=== PATIENT | male | born 1980 | race Hispanic/Latino ===

== ENCOUNTER 2017-09-27 18:02 | Observation (INO) | payer OTHER ==
[~2017-09-27] VITALS: Ht 177.8 cm; Wt 142.1 kg
--- NOTE | 2017-09-28 08:26 | CONS ---
[facility] [address], [place] [address] Signed DATE OF CONSULTATION: 09/28/2017 CHIEF COMPLAINT: Periumbilical pain. 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 He is aware that he has an umbilical hernia. Six days ago though he felt that it was increased in size and painful. He could not push it back inside as usual. It continued throughout the week and now it has turned red. He finally came to the emergency room for evaluation. In the emergency room, his white count is normal. CT scan showed his umbilical hernia containing fat and a 2 cm gallstone. I was asked to admit him as a general surgeon overnight. He has received IV fluids and pain medication. Overall, he says he is feeling better. PAST MEDICAL HISTORY: Umbilical hernia, 2 cm gallstone, and back pain. PAST SURGICAL HISTORY: Tonsils. SOCIAL HISTORY: He does not smoke or drink. He is single and has two boys. He works in construction. He prefers the [facility] in [place]. His mother is Becky at [phone]. He has no primary care provider. FAMILY HISTORY: He said mom and dad are healthy. REVIEW OF SYSTEMS: He had 10 systems reviewed and other than being overweight, he had no new issues. ALLERGIES: None. MEDICATIONS: None. PHYSICAL EXAMINATION: VITAL SIGNS: His blood pressure is 100/65, his heart rate is 64, respiratory rate 16, temperature 97.7. He is 96% on room air. He is 5 feet 10 inches and 142 kg. GENERAL: Mariluz is a 37-year-old gentleman who is lying supine in his hospital bed. He Electronically Signed By: VICTOR HUGO QUESADA MD 09/28/17 0826 PATIENT NAME: MARILUZ CAMARENA CONSULTATION DATE OF : 80 REPORT #: [id number] PHYSICIAN: VICTOR HUGO QUESADA MD PCP: NO PRIMARY CARE PHYSICIAN REPORT IS CONFIDENTIAL AND NOT TO BE RELEASED WITHOUT AUTHORIZATION [facility] [address], [place] [address] Signed was sleeping and easily awakened. He does not appear systemically ill or toxic. LUNGS: Clear to auscultation bilaterally. HEART: Regular rate and rhythm. ABDOMEN: Obese, but soft with an incarcerated umbilical hernia, probably every bit a 4 cm in diameter. With his dark skin in the dark room, it is hard to see the amount of redness. LABORATORY DATA: His white blood count is 6.2, neutrophils 56. Liver function tests negative. Albumin is 4.1. Electrolytes unremarkable. RADIOGRAPHIC STUDIES: A CT scan of abdomen and pelvis is reviewed and he has a 2 cm gallstone, but more importantly he has an umbilical hernia with about 2 cm in diameter with about 5 cm of fat coming through the fascial defect. There is some edema in the fluid around it. ASSESSMENT/PLAN: Mariluz is a 37-year-old obese gentleman, who has an incarcerated, not strangulated umbilical hernia. He has been admitted and given IV fluids and we will check to make sure he was given antibiotics. He will be going to the OR later today. I have reviewed with Mariluz the nature of an umbilical hernia. We have discussed primary suture repair versus mesh repair. We have reviewed the expected intraop and postop course. There is risk of surgery including, but not limited to bleeding, infection, scarring, change in contour of the skin, damage to bowel, infection of mesh requiring removal, recurrent hernias and chronic pain. He has expressed understanding and would like to proceed. Victor Hugo Quesada MD ALB/MODL /[id number] cc: Victor Hugo Quesada MD Copies: VICTOR HUGO QUESADA MD ~ Electronically Signed By: VICTOR HUGO QUESADA MD 09/28/17 0826 PATIENT NAME: MARILUZ CAMARENA ETIENNE CONSULTATION DATE OF : 80 REPORT #: [id number] PHYSICIAN: VICTOR HUGO QUESADA MD PCP: NO PRIMARY CARE PHYSICIAN REPORT IS CONFIDENTIAL AND NOT TO BE RELEASED WITHOUT AUTHORIZATION
[2017-09-29] MEDS ORDERED: NORCO 5-325 TA1 EACH PO ×2 (01:30→01:35)
[2017-09-29] MEDS ORDERED: CLEOCIN HCL300 MG PO (01:32)
--- NOTE | 2017-09-29 08:28 | OR ---
[facility] [address], [place] [address] Signed DATE OF OPERATION: 09/28/2017 SURGEON: Vahid Quesada MD PREOPERATIVE DIAGNOSIS: Incarcerated umbilical hernia (2 cm). POSTOPERATIVE DIAGNOSIS: Incarcerated umbilical hernia (2 cm). PROCEDURE: Primary umbilical herniorrhaphy without mesh. ESTIMATED BLOOD LOSS: None. INDICATIONS: Jessee is a 37-year-old obese gentleman, who is known to have an umbilical hernia. For 6 days, he felt that it has increased in size, and it was painful and developed erythema. He finally came to emergency room for evaluation. His white count was normal, and he had a CT scan of the abdomen and pelvis performed that showed the umbilical hernia containing fat with some edema, but no incarcerated small bowel. He also has a 2-cm gallstone. Consequently, I was asked to admit him as a general surgeon on-call. He was admitted, given Levaquin and Flagyl and pain control and IV fluids. He said overall he felt much better. I had met with Jessee and we had discussed the nature of an umbilical hernia. We discussed primary suture repair versus a mesh repair. I had warned Jessee that the recurrence rate for primary suture repair is higher to at least 3%-15% and for mesh it is somewhere 1% or less. However, with the edema and some of the erythema, we were hesitant to use mesh. He also understands expected intraoperative and postoperative course. There is risk of surgery including, but not limited to bleeding, infection, scarring, change in contour of the skin, damage to bowel, recurrent hernias, and chronic pain. He expressed understanding and wished to proceed. DESCRIPTION OF PROCEDURE: Jessee was taken into our operating room and placed in the supine position under general endotracheal tube anesthesia. He was on preoperative antibiotics along with subcutaneous heparin. SCDs were utilized. He was then prepped and draped in the usual sterile fashion. After this, a midline vertical incision was made and carried around the right side of his umbilicus. This was carried down around the herniated tissue bluntly and with the cautery. I the umbilical skin and the hernia sac from Electronically Signed By: VAHID QUESADA MD 09/29/17 0828 PATIENT NAME: JESSEE CAMARENA OPERATIVE REPORT DATE OF : 80 REPORT #: [id number] PHYSICIAN: VAHID QUESADA MD PCP: NO PRIMARY CARE PHYSICIAN REPORT IS CONFIDENTIAL AND NOT TO BE RELEASED WITHOUT AUTHORIZATION [facility] [address], [place] [address] Signed the fascia and discarded the hernia sac. He had necrotic, somewhat liquified, omentum inside that hernia sac. We pulled that up just a bit and divided between Pean clamps and 0 Vicryl ties on the healthy omentum. The necrotic portion was discarded. After this, the wound was irrigated and suctioned out until clear. With these findings, we decided not to utilize mesh. We closed the fascial defect primarily in a transverse fashion with interrupted [id number] and simple #1 Prolene sutures. He has very thick heavy abdominal wall and that worked out quite nicely. Local anesthetic was then injected into the wound. The wound was irrigated and suctioned out until clear. The umbilical skin was held down to the midline with an interrupted 2-0 PDS suture. The dermis was reapproximated with interrupted 3-0 subcuticular Monocryl sutures. The skin edges were reapproximated with a running 6-0 fast absorbing plain gut suture. Dry gauze and tape were then applied. Jessee was then awakened from his anesthesia, extubated in the OR, and taken to recovery room in stable condition. Vahid Quesada MD ALB/MODL /[id number] cc: Vahid Quesada MD Copies: VAHID QUESADA MD ~ Electronically Signed By: VAHID QUESADA MD 09/29/17 0828 PATIENT NAME: JESSEE CAMARENA OPERATIVE REPORT DATE OF : 80 REPORT #: [id number] PHYSICIAN: VAHID QUESADA MD PCP: NO PRIMARY CARE PHYSICIAN REPORT IS CONFIDENTIAL AND NOT TO BE RELEASED WITHOUT AUTHORIZATION
--- NOTE | 2017-09-30 08:26 | DS ---
[facility] [address] [place], [place] [address] Signed ADMISSION DATE: 09/27/2017 DISCHARGE DATE: 09/29/2017 FINAL DIAGNOSIS: Strangulated umbilical hernia. PROCEDURES: 1. Primary umbilical herniorrhaphy. 2. CT scan of abdomen and pelvis. HISTORY OF PRESENT ILLNESS: Jessee is a 37-year-old obese gentleman, who works labor for living. He has had an umbilical hernia for some time. However, the last 6 days he noticed it was larger and more painful and finally was becoming red. He decided to come to the emergency room for evaluation. He had a nonreducible umbilical hernia with some overlying redness on the skin. His white count was 6.2. Other labs were fine. CT scan of abdomen and pelvis showed a 2 cm gallstone, but also a 2 cm umbilical fascial defect with about 5 cm of fat coming through with edema. Consequently, I was asked to admit him as a general surgeon on-call. HOSPITAL COURSE: Jessee was admitted as above and started on antibiotics, Levaquin and Flagyl along with his pain control. He was taken to the operating room later that day and we excised the strangulated omentum and discarded that and because of the findings in the fluid and the edema and so forth, we elected not use mesh. We closed his fascial defect transversely with interrupted [id number] and simple #1 Prolene sutures. We kept him overnight and he has done quite well. He is tolerating diet. His pain is under good control and he has been asking to go home. DISCHARGE PLANS AND MEDICATIONS: Jessee is going to be discharged to home with a prescription for [place] 5/325 one to two tablets p.o. q.4-6 hours p.r.n. pain, dispense 40 tablets with no refills. We will give him clindamycin 450 mg p.o. t.i.d. for 5 days. He is very anxious to return to work under light duty status. We will let him do that if he does not lift over 20 pounds. In addition, he should not do any heavy pushing or pulling. He is welcome to shower and bathe as usual. He can leave the incision open to air, but it work if he wants to cover it lightly with some gauze as perfectly fine as well. He can always use ice for pain. If he wants to use ibuprofen or Tylenol, it is certainly fine. We will be seeing him back in our office in about 7 to 10 days for followup. He has expressed understanding and agrees above plan. Electronically Signed By: VICTOR HUGO QUESADA MD 09/30/17 0826 PATIENT NAME: JESSEE CAMARENA DISCHARGE SUMMARY DATE OF : 80 REPORT #: [id number] PHYSICIAN: VICTOR HUGO QUESADA MD PCP: NO PRIMARY CARE PHYSICIAN REPORT IS CONFIDENTIAL AND NOT TO BE RELEASED WITHOUT AUTHORIZATION [facility] [address] [place] [id number] Signed Victor Hugo Quesada MD ALB/MODL /[id number] Copies: ~ Electronically Signed By: VICTOR HUGO QUESADA MD 09/30/17 0826 PATIENT NAME: JESSEE CAMARENA DISCHARGE SUMMARY DATE OF : 80 REPORT #: [id number] PHYSICIAN: VICTOR HUGO QUESADA MD PCP: NO PRIMARY CARE PHYSICIAN REPORT IS CONFIDENTIAL AND NOT TO BE RELEASED WITHOUT AUTHORIZATION
== END 2017-09-29 09:30 | disposition home or self-care (01) ==
LOC: ED 18:02 → MS 18:04 → ED 21:06 → MS 21:06
PROVIDERS: ADMIT Colon & Rectal Surgery
PROC: 0WQF0ZZ Repair Abdominal Wall, Open Approach (ICD-10-PCS; principal; 2017-09-28 14:45)
DX: K42.0 Umbilical hernia with obstruction, without gangrene (principal); F17.210 Nicotine dependence, cigarettes, uncomplicated; E66.01 Morbid (severe) obesity due to excess calories; Z68.41 Body mass index [BMI] 40.0-44.9, adult
CPT/HCPCS: 00750; 74177; 80053; 85025; 94762; 96360; 96365; 96372; 96375; 96376; 99285; G0378; J0330; J1170; J1644; J1956; J2405; J3010; J7030; J7120; Q9967

== ENCOUNTER 2021-08-29 08:11 | Emergency (ER) | payer SELFPAY ==
[~2021-08-29] VITALS: Ht 177.8 cm; Wt 142.1 kg
[~2021-08-29 08:11] MED LIST: CLEOCIN HCL300 MG PO; NORCO 5-325 TA1 EACH PO
== END 2021-08-29 09:26 | disposition home or self-care (01) ==
LOC: ED 08:11
DX: S63.91XA Sprain of unspecified part of right wrist and hand, initial encounter (principal); Y04.2XXA Assault by strike against or bumped into by another person, initial encounter; F17.200 Nicotine dependence, unspecified, uncomplicated
CPT/HCPCS: 73110